=== PATIENT | female | born 1995 | race African-American/Black ===

== ENCOUNTER 2019-02-10 14:15 | Emergency (ER) | payer MEDICAID ==
[~2019-02-10] VITALS: Ht 165.1 cm; Wt 58.0 kg
[2019-02-10] MEDS ORDERED: SODIUM CHLORIDE 0.9% 1,000 ML IV ONE (16:09)
[2019-02-10 16:44] LABS: BASOPHILS % 0.6 % (0.0-2.0); HEMATOCRIT. 36.5 % (36.0-48.0); HEMOGLOBIN. 11.9 g/dL (12.0-16.0); LYMPHOCYTES % 25.4 % (20.0-50.0); MEAN CORPUSCULAR HEMOGLOBIN 26.2 pg (28.0-32.0); MEAN CORPUSCULAR VOLUME 80.6 fL (81.0-99.0); MEAN PLATELET VOLUME 7.7 fl (7.4-10.4); MONOCYTES % 11.5 % (2.0-8.0); NEUTROPHILS % 61.5 % (40.0-76.0); PLATELET 236 x1000/uL (130-400); RED BLOOD CELL COUNT 4.53 mill/uL (4.2-5.4); RED CELL DISTRIBUTION WIDTH 12.9 % (11.6-14.6)
[2019-02-10 16:47] LABS: PROTHROMBIN TIME 10.6 sec (9.6-11.0)
[2019-02-10 16:48] LABS: CHLORIDE 107 mEq/L (98-107)
[2019-02-10 16:59] LABS: HCG SCREEN NEGATIVE
[2019-02-10 17:50] LABS: CLARITY URINE CLEAR (CLEAR); COLOR URINE YELLOW (YELLOW); KETONES URINE NEGATIVE (NEGATIVE); LEUKOCYTE ESTERASE URINE NEGATIVE (NEGATIVE); NITRITE URINE NEGATIVE (NEGATIVE); OCCULT BLOOD URINE NEGATIVE (NEGATIVE); PH URINE 6.5 (4.5-8.0); PROTEIN URINE NEGATIVE (NEGATIVE); SPECIFIC GRAVITY URINE 1.006 (1.005-1.030); UROBILINOGEN URINE 0.2 E.U./dL (0.2-1.0)
[2019-02-10 19:04] VITALS: BP 100/60
== END 2019-02-10 19:07 | disposition home or self-care (01) ==
LOC: ER 14:15
DX: R10.9 Unspecified abdominal pain (principal); R19.7 Diarrhea, unspecified; R31.0 Gross hematuria; R30.0 Dysuria; R05 Cough
CPT/HCPCS: 36415; 80053; 81003; 84703; 85025; 85610; 96360; 99283; J7030